=== PATIENT | male | born 1970 | race Caucasian/White ===

== ENCOUNTER 2019-09-12 21:56 | Outpatient (REF) | payer OTHER, SELFPAY ==
[2019-09-12 21:56] LABS: COMMENT (LAB VIEW ONLY) 94.29 mg/dL; Microalb ug/mg Crea 9.2 ug/mg Cr
[2019-09-12 21:58] LABS: BUN 14 mg/dL (7-18); CREATININE 0.96 mg/dL (0.70-1.30); Calcium 9.5 mg/dL (8.5-10.1); Chloride 101 mmol/L (98-107); Glucose 268 mg/dL (70-100); Potassium 4.8 mmol/L (3.5-5.1); Sodium 138 mmol/L (136-145)
== END 2019-09-12 22:16 ==
LOC: NCHCN 21:56
PROVIDERS: PCP Internal Medicine; Visit Provider Internal Medicine
DX: E11.9 Type 2 diabetes mellitus without complications (principal)
CPT/HCPCS: 80048; 82043; 82570

== ENCOUNTER 2020-07-30 12:16 | Outpatient (REF) | payer OTHER, SELFPAY ==
[2020-07-30 21:42] LABS: Lipase 273 U/L (73-393)
== END 2020-07-30 12:36 ==
LOC: NCHCN 12:16
PROVIDERS: PCP Internal Medicine; Referring Provider Internal Medicine; Visit Provider Internal Medicine
DX: R07.89 Other chest pain (principal)
CPT/HCPCS: 83690

== ENCOUNTER 2020-08-10 16:22 | Outpatient (REF) | payer OTHER, SELFPAY ==
[2020-08-10 19:17] LABS: Abs Immature Grans 0.06 10^3/uL (0.0-0.06); Absolute Basophil Count 0.09 10^3/uL (0.0-0.2); Absolute Eosinophil Count 0.29 10^3/uL (0.0-0.7); Absolute Lymphocyte Count 2.13 10^3/uL (1.2-3.4); Absolute Monocyte Count 0.49 10^3/uL (0.1-0.8); Absolute Neutrophil Count 7.32 10^3/uL (1.2-6.7); Basophils % 0.9; Eosinophils % 2.8; HCT 48.9 % (40.0-50.0); HGB 16.9 g/dL (13.5-17.5); Immature Grans % 0.6; Lymphocytes % 20.5; MCH 29.4 pg (27.0-33.0); MCHC 34.6 % (32.0-36.0); MPV 10.2 fL (8.0-11.0); Monocytes % 4.7; Neutrophils % 70.5; Nucleated RBC 0 %; Platelet Count 293 10^3/uL (130-400); RBC 5.75 10^6/uL (4.36-5.78); RDW-SD 36.9 fL; WBC 10.38 10^3/uL (4.4-10.8)
[2020-08-10 20:00] LABS: ALT 30 U/L (16-63); AST 13 U/L (15-37); Albumin 3.8 g/dL (3.4-5.0); Alkaline Phosphatase 129 U/L (46-116); Anion Gap 10.3 mmol/L (3-11); BUN 15 mg/dL (7-18); Bilirubin, Total 0.7 mg/dL (0.2-1.0); CO2 26.7 mmol/L (21.0-32.0); CREATININE 0.81 mg/dL (0.70-1.30); Calcium 9.2 mg/dL (8.5-10.1); Chloride 98 mmol/L (98-107); Glucose 305 mg/dL (74-106); Potassium 4.1 mmol/L (3.5-5.1); Sodium 135 mmol/L (136-145); Total Protein 6.9 g/dL (6.4-8.2)
== END 2020-08-10 16:42 ==
LOC: NCHCN 16:22
PROVIDERS: PCP Internal Medicine; Visit Provider Registered Nurse
DX: I10 Essential (primary) hypertension (principal); K21.9 Gastro-esophageal reflux disease without esophagitis
CPT/HCPCS: 80053; 85025

== ENCOUNTER 2021-09-04 16:53 | Outpatient (REF) | payer BC, OTHER, SELFPAY ==
[2021-09-04 20:59] LABS: ALT 33 U/L (16-63); AST 14 U/L (15-37); Alkaline Phosphatase 135 U/L (46-116); Anion Gap 9.7 mmol/L (3-11); BUN 22 mg/dL (7-18); Bilirubin, Total 0.6 mg/dL (0.2-1.0); CO2 24.3 mmol/L (21.0-32.0); CREATININE 0.9 mg/dL (0.70-1.30); Calcium 9.3 mg/dL (8.5-10.1); Calculated LDL 80 mg/dL (<100); Chloride 98 mmol/L (98-107); Cholesterol 191 mg/dL (<200); Glucose 468 mg/dL (74-106); HDL Cholesterol 33 mg/dL (40-60); Potassium 4.7 mmol/L (3.5-5.1); Sodium 132 mmol/L (136-145); Total Protein 7.2 g/dL (6.4-8.2); Triglyceride 393 mg/dL (<150)
== END 2021-09-04 16:54 | disposition home or self-care (01) ==
LOC: NCHCN 16:53
PROVIDERS: PCP Internal Medicine; Visit Provider Internal Medicine
DX: E11.9 Type 2 diabetes mellitus without complications (principal); E78.5 Hyperlipidemia, unspecified
CPT/HCPCS: 80053; 80061

== ENCOUNTER 2021-09-11 17:37 | Outpatient (REF) | payer BC, OTHER, SELFPAY ==
[2021-09-11 19:38] LABS: GGT 80 U/L (15-85)
[2021-09-12 05:02] LABS: Vitamin D 25 Total 22.1 ng/mL (30-100)
[2021-09-12 17:29] LABS: PSA, Screening 1.2 ng/mL (0.0-3.5)
[2021-09-13 10:48] LABS: Parathyroid Hormone,Intact 27 pg/mL (19-88)
== END 2021-09-11 17:38 | disposition home or self-care (01) ==
LOC: NCHCN 17:37
PROVIDERS: PCP Internal Medicine; Visit Provider Internal Medicine
DX: E11.9 Type 2 diabetes mellitus without complications (principal); R74.8 Abnormal levels of other serum enzymes; Z12.5 Encounter for screening for malignant neoplasm of prostate
CPT/HCPCS: 82306; 84153; 82977; 83970

== ENCOUNTER 2022-09-15 10:44 | Outpatient (REF) | payer OTHER, SELFPAY ==
[2022-09-15 15:37] LABS: ALT 33 U/L (16-63); AST 21 U/L (15-37); Albumin 4.3 g/dL (3.4-5.0); Alkaline Phosphatase 147 U/L (46-116); Anion Gap 11.8 mmol/L (3-11); BUN 27 mg/dL (7-18); Bilirubin, Total 0.9 mg/dL (0.2-1.0); CO2 25.2 mmol/L (21.0-32.0); Calcium 10.1 mg/dL (8.5-10.1); Chloride 97 mmol/L (98-107); Glucose 320 mg/dL (74-106); Potassium 4.9 mmol/L (3.5-5.1); Sodium 134 mmol/L (136-145); Total Protein 8.4 g/dL (6.4-8.2)
[2022-09-15 18:22] LABS: Vitamin D 25 Total 21.3 ng/mL (30-100)
== END 2022-09-15 10:45 | disposition home or self-care (01) ==
LOC: NCHCN 10:44
PROVIDERS: PCP Internal Medicine; Visit Provider Internal Medicine
DX: E55.9 Vitamin D deficiency, unspecified (principal); R74.8 Abnormal levels of other serum enzymes
CPT/HCPCS: 80053; 82306

== ENCOUNTER 2023-04-16 21:23 | Outpatient (REF) | payer OTHER, SELFPAY ==
[2023-04-16 21:42] LABS: Microalb ug/mg Crea 36.9 ug/mg Cr
== END 2023-04-16 21:24 | disposition home or self-care (01) ==
LOC: NCHCN 21:23
PROVIDERS: PCP Internal Medicine; Visit Provider Registered Nurse
DX: E11.9 Type 2 diabetes mellitus without complications (principal)
CPT/HCPCS: 82043; 82570

== ENCOUNTER 2024-10-03 12:28 | Outpatient (REF) | payer OTHER, SELFPAY ==
[2024-10-03 14:34] LABS: ALT 25 U/L (16-63); AST 15 U/L (15-37); Alkaline Phosphatase 145 U/L (46-116); Anion Gap 11.3 mmol/L (3-11); BUN 21 mg/dL (7-18); Bilirubin, Total 0.65 mg/dL (0.2-1.0); CO2 24.7 mmol/L (21.0-32.0); CREATININE 0.9 mg/dL (0.70-1.30); Calcium 9.5 mg/dL (8.5-10.1); Calculated LDL 93 mg/dL (<100); Chloride 104 mmol/L (98-107); Cholesterol 192 mg/dL (<200); Estimated GFR 100.86 (mL/min/1.73m2); Glucose 273 mg/dL (74-106); HDL Cholesterol 47 mg/dL (40-60); Potassium 4.6 mmol/L (3.5-5.1); Sodium 140 mmol/L (136-145); Total Protein 7.7 g/dL (6.4-8.2); Triglyceride 263 mg/dL (<150)
== END 2024-10-03 12:29 | disposition home or self-care (01) ==
LOC: NCHCN 12:28
PROVIDERS: PCP Internal Medicine; Visit Provider Internal Medicine
DX: E11.9 Type 2 diabetes mellitus without complications (principal); E78.5 Hyperlipidemia, unspecified
CPT/HCPCS: 80053; 80061